=== PATIENT | male | born 2000 | race Two or more races ===

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

== ENCOUNTER 2021-02-19 08:00 | Outpatient (CLI) | payer BC, OTHER | END 2021-02-19 23:59 | disposition home or self-care (01) | LOC: LAB.N 08:00 | PROVIDERS: ATTEND Physician Assistant | DX: R05.9 Cough, unspecified (principal); Z20.822 Contact with and (suspected) exposure to COVID-19 ==

== ENCOUNTER 2023-11-04 08:16 | Emergency (ER) | payer OTHER ==
[2023-11-04 08:56] VITALS: BP 135/86; O2SAT 98
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
[2023-11-04] MEDS: PROPARACAINE 0.5% OPHTH DROPS 15 ML EACHEYE STA (09:11)
== END 2023-11-04 10:23 | disposition home or self-care (01) ==
LOC: ED 08:16
DX: T20.10XA Burn of first degree of head, face, and neck, unspecified site, initial encounter (principal); H10.213 Acute toxic conjunctivitis, bilateral; W38.XXXA Explosion and rupture of other specified pressurized devices, initial encounter; S09.311A Primary blast injury of right ear, initial encounter; X19.XXXA Contact with other heat and hot substances, initial encounter; Y99.0 Civilian activity done for income or pay
CPT/HCPCS: 1040M; 16000; 99283; 99284; J3490